=== PATIENT | female | born 1995 | race Two or more races ===

== ENCOUNTER 2017-02-25 20:13 | Emergency (ER) | payer BC ==
[~2017-02-25] VITALS: Ht 165.1 cm; Wt 76.2 kg
[2017-02-25 21:00] VITALS: BP 126/76
[2017-02-25] MEDS ORDERED: NAPROXEN375 M2 ORAL (21:00)
[2017-02-25] MEDS ORDERED: B-125000 MC1 PO (21:00)
[2017-02-25] MEDS ORDERED: GLUCOSAMINE1000 M1 PO (21:00)
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
[2017-02-25] MEDS ORDERED: Ketorolac 60mg Inj IM ONE (21:30)
[2017-02-25] MEDS ORDERED: IBUPROFEN600 MG ORAL (22:18)
[2017-02-25] MEDS ORDERED: CYCLOBENZAPRINE10 MG ORAL (22:18)
[2017-02-25 22:35] VITALS: BP 118/71
--- NOTE | 2017-02-26 11:08 | Diagnostic Imaging Report ---
Indication: PAIN Technique: 3 views of the cervical spine Comparison: none Findings: Bony alignment is normal. Vertebral body heights are preserved. Disc spaces are preserved. No prevertebral soft tissue swelling. No acute fractures. No dislocations. Impression: Negative
== END 2017-02-25 22:35 | disposition home or self-care (01) ==
LOC: EMR 21:19
DX: S16.1XXA Strain of muscle, fascia and tendon at neck level, initial encounter (principal); S00.83XA Contusion of other part of head, initial encounter; V43.52XA Car driver injured in collision with other type car in traffic accident, initial encounter; Y92.410 Unspecified street and highway as the place of occurrence of the external cause
CPT/HCPCS: 72040; 81025; 96372; 99284